=== PATIENT | female | born 1985 | race Caucasian/White ===

== ENCOUNTER 2023-01-11 06:58 | Emergency (ER) | payer BC, SELFPAY ==
[2023-01-11 07:15] VITALS: BP 157/91; PULSE 93; O2SAT 96
[2023-01-11 07:22] VITALS: BP 157/94; PULSE 98; RESP 18; TEMP 36.8; O2SAT 99; BMI 26.5
[2023-01-11 07:30] VITALS: BP 148/80; PULSE 84; O2SAT 100
--- NOTE | 2023-01-11 07:53 | ED_ITS ---
HPI - URI/Sore Throat General Chief Complaint: Upper Respiratory Symptoms Stated Complaint: SOB, Headache Time Seen by Provider: 01/11/23 07:38 Source: patient Mode of arrival: Ambulatory History of Present Illness HPI Narrative: Patient is . Complains of headache sinus pressure coughing for the past 2 weeks. Patient states whole family has the same symptoms. Patient was scheduled to see OBGYN today but is scheduled for next week now. Denies any abdominopelvic pain vaginal bleeding or discharge or fluid leak. She states still feels the baby moving. Feels short of breath because she can not get air through her nose. No nausea vomiting diarrhea. No fever or chills. Related Data Previous Rx's Medication Instructions Recorded fluticasone propionate 50 1 spray intranasal DAILY #16 grams 01/11/23 mcg/actuation nasal spray,suspension (24 Hour Allergy Relief) Allergies Allergy/AdvReac Type Severity Reaction Status Date / Time iodine Allergy Severe Swelling Verified 01/11/23 08:41 of Lip/Tongue/Throat Review of Systems Review of Systems Narrative: GENERAL: negative chills, fatigue, malaise, fever, sweats. HEENT: Positive sinus pain, negative ear pain, sore throat, positive headache, positive hoarse voice RESPIRATORY: negative dyspnea, positive cough CARDIOVASCULAR: negative chest pain, palpitations GASTROINTESTINAL: negative nausea, vomiting, abdominal pain : negative dysuria, frequency, hematuria MUSCULOSKELETAL: negative muscle or bony pain SKIN: negative rash, skin lesions NEUROLOGIC: negative weakness, numbness ROS Unobtainable: All systems reviewed & are unremarkable except as noted in HPI and below Patient History Social History Smoking Status: Former smoker Smoking Status: Former smoker alcohol intake frequency: other Substance Use Type: does not use Exam Narrative Exam Narrative: GENERAL: in no distress, not toxic not dyspneic HEAD: Normocephalic. EYES: Pupils equal round ENT: Mucous membranes moist. Reproducible left greater than right frontal and maxillary sinus. There is bilateral moderate nasal mucosa edema erythema NECK: Trachea midline. CARDIOVASCULAR: Regular rate and rhythm without murmurs RESPIRATORY: Clear to auscultation. Breath sounds equal bilaterally. No wheezes, rales, or rhonchi. Speaking full sentences. No respiratory distress. Clear and equal bilaterally GASTROINTESTINAL: Abdomen soft, non-tender EXTREMITIES: No gross deformities. BACK: No flank tenderness. NEURO: AOx4. SKIN: Warm and dry PSYCH: Not anxious, is cooperative Initial Vital Signs Initial Vital Signs: Vital Signs Pulse Rate 93 H 01/11/23 07:15 Blood Pressure 157/91 H 01/11/23 07:15 Pulse Oximetry 96 01/11/23 07:15 Course Orders Ordered: Discontinued Medications Acetaminophen (Acetaminophen 325 Mg Tablet) 975 mg PO NOW ONE Stop: 01/11/23 07:59 Last Admin: 01/11/23 08:44 Dose: Not Given Documented By: RB Oxymetazoline HCl (Oxymetazoline Nasal [place] 15 Ml) 2 sprays NASAL NOW ONE Stop: 01/11/23 07:48 Last Admin: 01/11/23 08:40 Dose: 2 sprays Documented By: RB Vital Signs Vital signs: Vital Signs - 8 hr 01/11/23 07:22 01/11/23 07:15 01/11/23 07:15 Temperature 98.3 F Pulse Rate 98 H 93 H Respiratory Rate 18 Blood Pressure 157/94 H 157/91 H Pulse Oximetry 99 96 Oxygen Delivery Method Room Air 01/11/23 07:30 01/11/23 07:30 Temperature Pulse Rate 84 Respiratory Rate Blood Pressure 148/80 H Pulse Oximetry 100 Oxygen Delivery Method MDM - URI/Sore Throat Lab Data Labs: Lab Results 01/11/23 Range/Units 07:15 Chlamy pneumoniae PCR Not detected (Not Detect) Adenovirus (PCR) Not detected (Not Detect) B. pertussis DNA (PCR) Not detected (Not Detecte) B.parapertussis DNA PCR Not detected (Not Detecte) Coronavirus OC43 (PCR) Not detected (Not Detect) Coronavirus HKU1 (PCR) Not detected (Not Detect) Coronavirus 229E (PCR) Not detected (Not Detect) SARS-CoV-2 (PCR) Not detected (Not Detecte) Coronavirus NL63 (PCR) Not detected (Not Detect) Human Metapneumovir PCR Not detected (Not Detect) Influenza Type A (PCR) Not detected (Not Detect) Influenza Type B (PCR) Not detected (Not Detect) M. pneumoniae (PCR) Not detected (Not Detect) Parainfluenza 1 (PCR) Not detected (Not Detect) Parainfluenza 2 (PCR) Not detected (Not Detect) Parainfluenza 3 (PCR) Not detected (Not Detect) Parainfluenza 4 (PCR) Not detected (Not Detect) RSV (PCR) Not detected (Not Detect) Entero/Rhino (PCR) Not detected (Not Detect) MDM Narrative Medical decision making narrative: After history and exam ordered viral swab and Afrin spray MDM CC: Sinus pressure headache cough and congestion Complicating co-morbidities: Patient 30 weeks Data collected from: Patient Medical records reviewed: No recent visit for this complaint Differential considered: Includes but not limited to COVID metapneumovirus influenza RSV, seasonal allergies, viral infection, sinusitis Exam documented above, pertinent findings include: Boggy edematous erythematous bilateral nasal mucosa and sinus tenderness Lab Test results independently reviewed as above. Pertinent findings: Viral swab negative Imaging studies independently reviewed: None indicated Consultations: None indicated at this time Treatments: Afrin spray, Tylenol Re-evaluations: 9:38 a.m.. Patient feeling much better after Afrin spray and Tylenol. Reviewed results with her. At this time no antibiotics indicated. Left ear exam clear TM no effusion no drainage no bleeding. No mastoid tenderness. Discussion: Appropriate for discharge home. Exam is reassuring. Supportive care needed for sinusitis. Patient has follow up with primary care/OBGYN next week. Prescription for Flonase provided. Patient given Afrin to take home for duration of 3 days. Diagnosis: Acute sinusitis Discharge Plan Departure Patient Disposition: Home Clinical Impression: Sinusitis Instructions: DI for Sinusitis Activity Restrictions/Additional Instructions: May use provided Afrin spray twice a day for total of 3 days. Prescription for Flonase has been provided for you as well. Please use this once a day for 1 week. Please see your family doctor or OBGYN doctor next week for re- evaluation. Return if worse if any questions or concerns. May continue Tylenol for pain. Prescriptions: New fluticasone propionate [24 Hour Allergy Relief] 50 mcg/actuation spray,suspension 1 spray intranasal DAILY Qty: 16 0RF Rx Instructions: administer into each nostril Referrals: Miscellaneous,DoctorMD [Primary Care Provider] - Stand Alone Forms: Patient Portal/API
[2023-01-11] MEDS: OXYMETAZOLINE NASAL SPRAY 15 ML 2 SPRAYS NASAL (08:40)
--- NOTE | 2023-01-11 08:44 | PC.NURSE ---
This nurse was in process of giving the patient tylenol when the patient stated that she just took some of her own holding up the bottle. Patient took 500mg. Talked to Dr. Mahajan and he gave verbal order not to give any additional tylenol.
[2023-01-11 09:22] LABS: Adenovirus Not Detected (Not Detect); B. parapertussis Not Detected (Not Detecte); Bordetella pertussis Not Detected (Not Detecte); Chlamydophila pneumoniae Not Detected (Not Detect); Coronavirus 229E Not Detected (Not Detect); Coronavirus HKU1 Not Detected (Not Detect); Coronavirus NL 63 Not Detected (Not Detect); Coronavirus OC43 Not Detected (Not Detect); Human Metapneumovirus Not Detected (Not Detect); Human Rhinovirus/Enterovirus Not Detected (Not Detect); Influenza A Not Detected (Not Detect); Influenza B Not Detected (Not Detect); Mycoplasma pneumoniae Not Detected (Not Detect); Parainfluenza Virus 1 Not Detected (Not Detect); Parainfluenza Virus 2 Not Detected (Not Detect); Parainfluenza Virus 3 Not Detected (Not Detect); Parainfluenza Virus 4 Not Detected (Not Detect); Respiratory Syncytial Virus Not Detected (Not Detect); SARS- CoV-2 Not Detected (Not Detecte)
[2023-01-11 09:54] VITALS: PULSE 84; RESP 18; O2SAT 99
--- NOTE | 2023-01-11 10:04 | PC.NURSE ---
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 Tried to call no answer, no voicemail set up.
== END 2023-01-11 09:54 | disposition home or self-care (01) ==
PROVIDERS: Emergency Provider Emergency Medicine
DX: O26.893 Other specified pregnancy related conditions, third trimester (principal); J32.9 Chronic sinusitis, unspecified; Z3A.30 30 weeks gestation of pregnancy; Z87.891 Personal history of nicotine dependence
CPT/HCPCS: 87633; 99282; A9270

== ENCOUNTER 2023-01-15 16:04 | Emergency (ER) | payer BC, SELFPAY ==
[2023-01-15 16:32] VITALS: BP 128/84; PULSE 98; RESP 16; TEMP 36.6; O2SAT 99; BMI 27.3
--- NOTE | 2023-01-15 16:41 | ED.URI ---
HPI - URI/Sore Throat <Thang Farah PA-C - Last Filed: 01/15/23 18:26> General Chief Complaint: Upper Respiratory Symptoms Stated Complaint: /losing hearing/head congestion Time Seen by Provider: 01/15/23 16:29 History of Present Illness HPI Narrative: This is a 37-year-old female presents emergency department due to continued sinus congestion affecting her for the last couple of weeks. Since she was seen here 4 days ago she went to a local urgent care and was given a prescription for amoxicillin and azithromycin. She states that after 3 days the medications have not been helping to relieve her symptoms. Denies any new symptoms. Denies any fevers, nausea, vomiting, or any other concerning signs or symptoms. She states she feels a pressure in her ears bilaterally. Patient was seen here 4 days ago due to sinus pressure and coughing for the last 2 weeks. Patient is 30 weeks . Viral swab was negative. Patient was given Afrin friend spray and Tylenol and which made her feel much better. Recommended supportive care for sinusitis. Flonase prescribed. Advised to take Afrin as well. Related Data Previous Rx's Medication Instructions Recorded fluticasone propionate 50 1 spray intranasal DAILY #16 grams 01/11/23 mcg/actuation nasal spray,suspension (24 Hour Allergy Relief) Allergies Allergy/AdvReac Type Severity Reaction Status Date / Time iodine Allergy Severe Swelling Verified 01/11/23 08:41 of Lip/Tongue/Throat Review of Systems <Thang Farah PA-C - Last Filed: 01/15/23 18:26> Review of Systems Narrative: GENERAL: Denies chills, fatigue, malaise, fever, sweats. HEENT: Reports sinus pain as well as bilateral ear pain, Denies sore throat, difficulty swallowing, dizziness. RESPIRATORY: Denies dyspnea, cough, wheezing, hemoptysis, sputum. CARDIOVASCULAR: Denies chest pain, palpitations, orthopnea, edema, GASTROINTESTINAL: Denies nausea, vomiting, abdominal pain, diarrhea, constipation, melena. : Denies dysuria, frequency, incontinence, hematuria, urinary retention. MUSCULOSKELETAL: denies weakness, joint pain, or bony pain SKIN: Denies rash, skin lesions, or other NEUROLOGIC: Denies weakness, headache, numbness, change in speech, confusion, seizures, incoordination. PSYCHIATRIC: No concerning psychosocial issues. 12 point review of systems is negative except for those stated above Patient History <Thang Farah PA-C - Last Filed: 01/15/23 18:26> Social History Smoking Status: Former smoker Smoking Status: Former smoker alcohol intake frequency: other Substance Use Type: does not use Exam <Thang Farah PA-C - Last Filed: 01/15/23 18:26> Narrative Exam Narrative: GENERAL: Well-developed patient, in mild distress. HEAD: Atraumatic. Normocephalic. EYES: Pupils equal round and reactive. Extraocular motions intact. No scleral icterus. No injection or drainage. ENT: Bilateral TMs dull and bulging. Nose without bleeding, purulent drainage. Throat without erythema, tonsillar hypertrophy or exudate. Airway patent. NECK: Trachea midline. Non tender CARDIOVASCULAR: Regular rate and rhythm without murmurs, gallops, or rubs. RESPIRATORY: Clear to auscultation. Breath sounds equal bilaterally. No wheezes, rales, or rhonchi. GASTROINTESTINAL: Abdomen soft, non-tender, nondistended. EXTREMITIES: No edema or joint tenderness. BACK: Nontender without deformity or crepitance. No flank tenderness. NEURO: AOx3. SKIN: No rash or erythema of visible areas Initial Vital Signs Initial Vital Signs: Vital Signs Temperature 97.8 F 01/15/23 16:32 Pulse Rate 98 H 01/15/23 16:32 Respiratory Rate 16 01/15/23 16:32 Blood Pressure 128/84 01/15/23 16:32 Pulse Oximetry 99 01/15/23 16:32 Oxygen Delivery Method Room Air 01/15/23 16:32 <Winter Payne DO - Last Filed: 01/16/23 07:18> Initial Vital Signs Initial Vital Signs: Vital Signs Temperature 97.8 F 01/15/23 16:32 Pulse Rate 98 H 01/15/23 16:32 Respiratory Rate 16 01/15/23 16:32 Blood Pressure 128/84 01/15/23 16:32 Pulse Oximetry 99 01/15/23 16:32 Oxygen Delivery Method Room Air 01/15/23 16:32 Course <ARRON Laboy Last Filed: 01/15/23 18:26> Vital Signs Vital signs: Vital Signs - 8 hr 01/15/23 16:32 01/15/23 17:38 Temperature 97.8 F Pulse Rate 98 H 87 Respiratory Rate 16 Blood Pressure 128/84 127/72 Pulse Oximetry 99 98 Oxygen Delivery Method Room Air Room Air <Winteramilcar Payne DO - Last Filed: 01/16/23 07:18> Vital Signs Vital signs: Vital Signs - 8 hr 01/15/23 16:32 01/15/23 17:38 Temperature 97.8 F Pulse Rate 98 H 87 Respiratory Rate 16 Blood Pressure 128/84 127/72 Pulse Oximetry 99 98 Oxygen Delivery Method Room Air Room Air MDM - URI/Sore Throat <Thang Farah PA-C - Last Filed: 01/15/23 18:26> MDM Narrative Medical decision making narrative: MDM * differential diagnosis includes but not limited to viral sinusitis, bacterial sinusitis, URI * Prior records reviewed: Patient was seen here 4 days ago due to sinus pressure and coughing for the last 2 weeks. Patient is 30 weeks . Viral swab was negative. Patient was given Afrin friend spray and Tylenol and which made her feel much better. Recommended supportive care for sinusitis. Flonase prescribed. Advised to take Afrin as well. * My lab interpretation: None obtained * My imgaing interpretation: No head obtained * Clinical Decision Rules/Scores evaluated: None * Independent discussions with: None ED Course: This is a 37-year-old female presenting to the emergency department due to continue sinusitis. She was recently seen here 4 days ago and evaluated. Agree with the previous evaluation. Recommended continuing use of Flonase and Afrin. She was also prescribe amoxicillin and azithromycin by urgent care after being seen there 3 days ago. Recommended she continue taking his medications. Recommended she add Blaire during the day and Benadryl night his her symptoms maybe more allergy related. Also recommended [id number] saline spray. Shared Decision Making: Discussed plan with the patient who is comfortable with the plan. Social Considerations: None Disposition: Discharged to home Discharge Plan Departure Patient Disposition: Home Clinical Impression: Sinusitis Activity Restrictions/Additional Instructions: Thank you for coming to the [facility] Emergency Department today. I agree with your previous assessment when you were here 4 days ago. Please continue the treatments he advise. This includes Flonase, Afrin, and I would add a nasal saline spray. You may also use Blaire during the day and Benadryl at night as your symptoms may be allergy related. This may help with your symptoms. You may continue the course of antibiotics given to you by the urgent care. I hope you feel better soon. Prescriptions: No Action fluticasone propionate [24 Hour Allergy Relief] 50 mcg/actuation spray,suspension 1 spray intranasal DAILY Qty: 16 0RF Rx Instructions: administer into each nostril Referrals: Miscellaneous,Doctor, MD [Primary Care Provider] - Stand Alone Forms: Patient Portal/API <Winter Payne DO - Last Filed: 01/16/23 07:18> Cosign ED Attending Johnnyature Attestation: I was immediately available in the department for consultation. Documentation has been reviewed.
[2023-01-15 17:38] VITALS: BP 127/72; PULSE 87; O2SAT 98
--- NOTE | 2023-01-15 17:41 | PC.NURSE ---
see triage note for assessment
== END 2023-01-15 17:55 | disposition home or self-care (01) ==
PROVIDERS: Emergency Provider Physician Assistant Medical
DX: J32.9 Chronic sinusitis, unspecified (principal); Z3A.30 30 weeks gestation of pregnancy
CPT/HCPCS: 99281